=== PATIENT | female | born 1965 | race Caucasian/White ===

== ENCOUNTER → 2017-05-27 | Outpatient (CLI) | payer BC, SELFPAY | PROVIDERS: Visit Provider Internal Medicine Adolescent Medicine | DX: I10 Essential (primary) hypertension (principal) | CPT/HCPCS: 36415; 80053; 80061; 82306; 82607; 82728; 84443; 85025 ==

== ENCOUNTER → 2017-10-08 07:12 | Outpatient (CLI) | payer BC, SELFPAY ==
[2017-10-08 07:33] LABS: Basophils # 0.1 K/mm3 (0-0.2); Basophils % 0.9 % (0.1-2.0); Eosinophils # 0.1 K/mm3 (0.0-0.4); Eosinophils % 1.7 % (0.1-12.0); Hematocrit 46.1 % (37.0-47.0); Lymphocytes # 2.5 K/mm3 (0.7-4.5); Lymphocytes % 34.1 K/mm3 (10-50); Mean Corpuscular HGB Conc 32.5 g/dL (31.8-35.4); Mean Corpuscular Hemoglobin 29.4 pg (27.0-31.2); Mean Corpuscular Volume 90.4 fl (81-99); Mean Platelet Volume 8.5 fl (7.4-10.4); Monocytes # 0.4 K/mm3 (0.1-1.0); Neutrophils # 4.2 K/mm3 (1.8-7.8); Neutrophils % 57.3 % (37.0-80.0); Platelet Count 229 K/mm3 (142-424); Red Cell Distribution Width 13.2 % (11.5-17.5); White Blood Count 7.4 K/mm3 (4.8-10.8)
[2017-10-08 09:20] LABS: Alanine Aminotransferase 20 U/L (12-78); Albumin Level 3.9 gm/dL (3.4-5.0); Albumin/Globulin Ratio 1.1 (1.1-1.8); Alkaline Phosphatase 86 U/L (46-116); Anion Gap 12.2 mEq/L (5-15); Aspartate Amino Transferase 16 U/L (15-37); Bilirubin,Total 0.2 mg/dL (0.2-1.0); Blood Urea Nitrogen 25 mg/dL (7-18); Calcium 9.3 mg/dL (8.5-10.1); Carbon Dioxide 29 mmol/L (21.0-32.0); Chloride 105 mmol/L (98-107); Chol/HDL Ratio 4.2 (1-3.5); Cholesterol 281 mg/dL (140-200); Creatinine,Serum 0.88 mg/dL (0.55-1.02); Estimated Glomerular Filt Rate 67 ml/min (>60); Free T4 (Free Thyroxine) 0.93 ng/dl (0.76-1.46); GFR (African American) 81 ML/MIN (>60); Globulin 3.6 gm/dl (1.3-3.2); Glucose 89 mg/dL (74-106); HDL Cholesterol 67 mg/dL (29-89); LDL Cholesterol 185 mg/dL (0-130); Potassium 4.2 mmoL/L (3.5-5.1); Sodium 142 mmol/L (136-145); Thyroid Stimulating Hormone 2.54 uIU/ml (0.358-3.740); Total Protein,Serum 7.5 gm/dL (6.4-8.2); Triglycerides 147 mg/dL (30-200); VLDL Cholesterol 29 mg/dL (0-40)
[2017-10-08 09:21] LABS: Hemoglobin A1C 5.9 % (0.0-7.0)
[2017-10-10 05:46] LABS: Vitamin D 25 Hydroxy 25.3 ng/mL (30.0-100.0)
== END ==
PROVIDERS: PCP Emergency Medicine; Visit Provider Nurse Practitioner Family
DX: R53.83 Other fatigue (principal); I16.0 Hypertensive urgency; E78.5 Hyperlipidemia, unspecified
CPT/HCPCS: 36415; 80053; 80061; 82652; 83036; 84439; 84443; 85025

== ENCOUNTER → 2018-03-23 10:03 | Outpatient (CLI) | payer BC, SELFPAY ==
--- NOTE | 2018-03-23 10:06 | MM_ITS ---
MM Dig screening mamm BI w/CAD ORDERING PHYSICIAN : Arden Collier MD PATIENT AGE: 53 years GENDER: Female COMPARISON: Digital mammograms from January 2012, April 2014, film screen mammogram April 2008 INDICATION: ITS.REASON: Routine Screening Mammogram no hormones no new complaints noncontributory family history. TECHNIQUE: Standard CC and MLO images were obtained. R2 CAD reviewed. FINDINGS: Low-density breast bilaterally with generalized fatty replacement. Minimal fibroglandular elements bilaterally remain with mild asymmetry again observed similar to previous studies. No suspicious or dominant mass. No suspicious calcifications. Bilateral follow-up in one year adequate. Re-signed report IMPRESSION: ...... Negative, Stable bilateral mammogram. Follow-up in one year. Low-density breast with minimal asymmetry BI-RADS Category: 1 Negative RECOMMENDED FOLLOW-UP: 1YR 1 YEAR FOLLOW-UP (A letter has been sent to the patient regarding results of the study.) .
== END ==
PROVIDERS: PCP Emergency Medicine; Visit Provider Nurse Practitioner Obstetrics & Gynecology
DX: Z12.31 Encounter for screening mammogram for malignant neoplasm of breast (principal)
CPT/HCPCS: 77067

== ENCOUNTER → 2020-10-08 18:02 | Outpatient (CLI) | payer BC, SELFPAY ==
[2020-10-08 18:23] LABS: Basophils # 0.1 K/mm3 (0-0.2); Eosinophils # 0.2 K/mm3 (0.0-0.4); Eosinophils % 1.8 % (0.1-12.0); Hematocrit 41.4 % (37.0-47.0); Hemoglobin 13.5 g/dL (12.2-16.2); Lymphocytes # 3.1 K/mm3 (0.7-4.5); Lymphocytes % 34.9 % (10-50); Mean Corpuscular HGB Conc 32.6 g/dL (31.8-35.4); Mean Corpuscular Hemoglobin 28.3 pg (27.0-31.2); Mean Corpuscular Volume 86.9 fl (81-99); Mean Platelet Volume 8.8 fl (7.4-10.4); Monocytes # 0.6 K/mm3 (0.1-1.0); Monocytes % 6.6 % (1.7-9.3); Neutrophils # 4.9 K/mm3 (1.8-7.8); Neutrophils % 55.8 % (37.0-80.0); Platelet Count 237 K/mm3 (142-424); Red Blood Count 4.76 M/mm3 (4.20-5.40); Red Cell Distribution Width 14.2 % (11.5-17.5); White Blood Count 8.8 K/mm3 (4.8-10.8)
[2020-10-08 18:37] LABS: Alanine Aminotransferase 22 U/L (12-78); Albumin Level 4.4 g/dl (3.5-5.0); Albumin/Globulin Ratio 1.6 (1.1-1.8); Alkaline Phosphatase 88 U/L (38-126); Anion Gap 11.4 mEq/L (5-15); Aspartate Amino Transferase 29 U/L (14-36); Bilirubin,Total 0.3 mg/dl (0.2-1.3); Blood Urea Nitrogen 19 mg/dl (7-17); Calcium 9.5 mg/dl (8.4-10.2); Carbon Dioxide 27 mmol/L (22.0-30.0); Chloride 106 mmol/L (98-107); Chol/HDL Ratio 3.7 (1-3.5); Cholesterol 285 mg/dl (140-200); Estimated Glomerular Filt Rate 57 ml/min (>60); GFR (African American) 69 ML/MIN (>60); Globulin 2.8 g/dL (1.3-3.2); Glucose 92 mg/dl (74-100); HDL Cholesterol 78 mg/dl (40-60); Potassium 4.4 mmoL/L (3.5-5.1); Sodium 140 mmol/L (136-145); Total Protein,Serum 7.2 g/dl (6.3-8.2); Triglycerides 192 mg/dl (30-150); VLDL Cholesterol 38 mg/dL (0-40)
[2020-10-08 18:47] LABS: C-Reactive Protein 5.1 mg/L (0-4); Direct LDL Cholesterol 149.88 mg/dL (100-129)
[2020-10-08 18:53] LABS: Hemoglobin A1C 5.7 % (4.0-6.0)
[2020-10-08 19:08] LABS: Thyroid Stimulating Hormone 2.24 uIU/mL (0.465-4.68)
[2020-10-08 19:38] LABS: 25-OH Vitamin D, Total 18.9 ng/mL (30-100); Free T4 (Free Thyroxine) 1.04 ng/dl (0.78-2.19)
[2020-10-08 19:56] LABS: Erythrocyte Sedimentation Rate 17 mm/hr (0-30)
== END ==
PROVIDERS: Visit Provider Emergency Medicine
DX: I10 Essential (primary) hypertension (principal); E78.5 Hyperlipidemia, unspecified; E66.9 Obesity, unspecified; E55.9 Vitamin D deficiency, unspecified; Z68.42 Body mass index [BMI] 45.0-49.9, adult
CPT/HCPCS: 80053; 80061; 82306; 83036; 84439; 84443; 85025; 85651; 86140; 86431

== ENCOUNTER → 2020-10-09 09:47 | Outpatient (CLI) | payer BC, SELFPAY ==
--- NOTE | 2020-10-09 09:50 | XR_ITS ---
PROCEDURE: XR CHEST 2V CLINICAL HISTORY: shortness of breath COMPARISON: No exams were available for comparison FINDINGS: The cardiomediastinal silhouette and pulmonary vascularity are within normal limits. The lungs are clear without infiltrates, suspicious nodules, or pleural effusions. No acute bony abnormalities. IMPRESSION: No acute findings. Dictated by: Velasquez Rios MD 10/09/2020 10:18 Velasquez Rios MD in [place] 10/09/2020 10:18
== END ==
PROVIDERS: PCP Emergency Medicine; Visit Provider Emergency Medicine
DX: R06.02 Shortness of breath (principal)
CPT/HCPCS: 71046

== ENCOUNTER 2020-10-21 10:34 | Emergency (ER) | payer BC, SELFPAY ==
[2020-10-21 10:35] VITALS: BP 169/95; PULSE 64; RESP 16; TEMP 36.8; O2SAT 100; BMI 45.5
--- NOTE | 2020-10-21 10:54 | CT_ITS ---
PROCEDURE INFORMATION: Exam: CT Abdomen And Pelvis With Contrast; Kidneys Exam date and time: 10/21/2020 10:54 AM Age: 55 years old Clinical indication: Abdominal pain; Flank; Left lower quadrant (llq); Prior surgery; Surgery date: 6+ months; Surgery type: Hysterectomy, , ; Additional info: Llq pain TECHNIQUE: Imaging protocol: Computed tomography of the abdomen and pelvis with intravenous contrast. Exam focused on the kidneys. Radiation optimization: All CT scans at this facility use at least one of these dose optimization techniques: automated exposure control; mA and/or kV adjustment per patient size (includes targeted exams where dose is matched to clinical indication); or iterative reconstruction. Contrast material: ISOVUE; Contrast volume: 75 ml; Contrast route: IV; COMPARISON: No relevant prior studies available. FINDINGS: Liver: Normal. No mass. Gallbladder and bile ducts: Normal. No calcified stones. No ductal dilation. Pancreas: Normal. No ductal dilation. Spleen: Normal. No splenomegaly. Adrenals: Normal. No mass. 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 No renal calculus or hydronephrosis. No perinephric edema. Stomach and bowel: Normal. No obstruction. No mucosal thickening. Colonic diverticulosis, no acute diverticulitis. Intraperitoneal space: Unremarkable. No free air. No significant fluid collection. Lymph nodes: Unremarkable. No enlarged lymph nodes. Vasculature: Unremarkable. No abdominal aortic aneurysm. Bladder: Unremarkable. Reproductive: Hysterectomy. Bones/joints: Unremarkable. Soft tissues: Left abdominal wall intramuscular lipoma. IMPRESSION: No acute findings.
--- NOTE | 2020-10-21 10:55 | [facility].EDABDPAI ---
ED Disposition Clinical Impression: Diverticulosis, Diverticulitis Disposition: Home, Self-Care Condition on Discharge: Good Instructions: DI for Acute Abdominal Pain, DI for Diverticulosis, DI for Diverticulitis Additional Instructions: You have been evaluated for abdominal pain, diagnosed with diverticulosis. Please take ciprofloxacin and Flagyl. Take Clovis for extreme pain. Take ibuprofen for mild pain. Follow-up with Dr. Boogie on Tuesday. You may come at 10 AM or 1 PM, please call the office to schedule. Follow a bland diet. Eat fiber. Have regular bowel movements. Return to the emergency department for any new or worsening symptoms, vomiting, fevers, worsening pain. Prescriptions: Hydrocod/Acet 5/325 mg [Clovis 5/325mg tablet] 1 tab PO Q6HP PRN #8 tab PRN Reason: Severe Pain Transmission Status: Received by [id number] Ciprofloxacin HCl [Ciprofloxacin 250mg Tab] 500 mg PO BID 10 Days #40 tab Transmission Status: Pending to [id number] metroNIDAZOLE [Metronidazole] 500 mg PO BID 10 Days #20 tab Transmission Status: Pending to [id number] Referrals: Rolando Boogie MD [Primary Care Provider] - Time of Disposition: 14:04 - Critical Care Critical Care Time: No Attestation: On 10/21/20, the high probability of a clinically significant, sudden or life threatening deterioration of the following system(s) required my full and direct attention, intervention and personal management. The time I documented below is in addition to time spent performing reported procedures but includes the following listed in this critical care notation. Medical Decision Making - Medical Records Medical records reviewed: Yes: I reviewed the patient's medical records. - Lonnie Inquiry Pt receiving controlled substance: No Vital Signs: 10/21/20 10:35 10/21/20 11:49 10/21/20 13:05 Temperature 98.2 F Temperature Source Oral Pulse Rate 54 L 59 L Pulse Rate [Right] 64 Respiratory Rate 16 Blood Pressure 113/72 Blood Pressure [Right Arm] 169/95 H Blood Pressure Mean Blood Pressure Mean [Right Arm] 119 Blood Pressure Source [Right Arm] Automatic Cuff Blood Pressure Position [Right Arm] Sitting 02 Sat by Pulse Oximetry 100 100 98 Oxygen Delivery Method Room Air 10/21/20 13:23 Temperature Temperature Source Pulse Rate 62 Pulse Rate [Right] Respiratory Rate 18 Blood Pressure 171/84 H Blood Pressure [Right Arm] Blood Pressure Mean 146 Blood Pressure Mean [Right Arm] Blood Pressure Source [Right Arm] Blood Pressure Position [Right Arm] 02 Sat by Pulse Oximetry 99 Oxygen Delivery Method - Lab Data Lab Results 10/21/20 10:46: Urine Color Yellow, Urine Appearance Clear, Urine pH 6.0, Ur Specific [place] <= 1.005, Urine Protein Negative, Urine Glucose (UA) Negative, Urine Ketones Negative, Urine Blood Negative, Urine Nitrate Negative, Urine Bilirubin Negative, Urine Urobilinogen 0.2, Ur Leukocyte Esterase Negative, Urine RBC None, Urine WBC 3-5, Ur Squamous Epith Cells Occasional, Urine Bacteria None 10/21/20 10:57: WBC 6.9, RBC 4.94, Hgb 14.0, Hct 43.6, MCV 88.2, MCH 28.4, MCHC 32.2, RDW 13.8, Plt Count 226, MPV 8.8, Neut % (Auto) 57.5, Lymph % (Auto) 33.8, [place] % (Auto) 6.2, Eos % (Auto) 1.1, Baso % (Auto) 1.3, Neut # (Auto) 4.0, Lymph # (Auto) 2.4, [place] # (Auto) 0.4, Eos # (Auto) 0.1, Baso # (Auto) 0.1 10/21/20 10:57: Sodium 140, Potassium 4.5, Chloride 107, Carbon Dioxide 27, Anion Gap 10.5, BUN 17, Creatinine 1.00, Estimated Creat Clear 51, Estimated GFR 57 L, Est GFR ( Amer) 69, Glucose 92, Calcium 9.6, Total Bilirubin 0.5, AST 30, ALT 20, Alkaline Phosphatase 83, C-Reactive Protein 4.9 H, Total Protein 7.8, Albumin 4.6, Globulin 3.2, Albumin/Globulin Ratio 1.4, Lipase 184 10/21/20 10:57: ESR 61 H 10/21/20 10:57: Procalcitonin 0.125 10/21/20 11:05: Lactate 1.0 Result diagrams: 10/21/20 10:57 10/21/20 10:57 Orders (Tests/Meds): ED MEDICATIONS
[2020-10-21 10:58] LABS: Microscopic, Urine URINE MICROSCOPIC (MICROSCOPIC)
[2020-10-21 11:00] LABS: Appearance,Urine CLEAR (Clear); Bilirubin,Urine Negative (Negative); Blood, Urine Negative (Negative); Color,Urine YELLOW (Yellow); Glucose,Urine (UA) Negative (Negative); Ketones,Urine Negative (Negative); Leukocyte Esterase,Urine Negative (Negative); Nitrate,Urine Negative (Negative); Protein,Urine Negative (Negative); Specific Gravity, Urine <= 1.005 (1.005-1.030); Urobilinogen,Urine 0.2 EU/dl (0.2)
[2020-10-21 11:13] LABS: Squamous Epithelial Cell,Urine Occasional #/hpf (0-5)
[2020-10-21 11:21] LABS: Basophils # 0.1 K/mm3 (0-0.2); Basophils % 1.3 % (0.1-2.0); Eosinophils # 0.1 K/mm3 (0.0-0.4); Eosinophils % 1.1 % (0.1-12.0); Hematocrit 43.6 % (37.0-47.0); Lymphocytes # 2.4 K/mm3 (0.7-4.5); Lymphocytes % 33.8 % (10-50); Mean Corpuscular HGB Conc 32.2 g/dL (31.8-35.4); Mean Corpuscular Hemoglobin 28.4 pg (27.0-31.2); Mean Corpuscular Volume 88.2 fl (81-99); Mean Platelet Volume 8.8 fl (7.4-10.4); Monocytes # 0.4 K/mm3 (0.1-1.0); Monocytes % 6.2 % (1.7-9.3); Neutrophils % 57.5 % (37.0-80.0); Platelet Count 226 K/mm3 (142-424); Red Blood Count 4.94 M/mm3 (4.20-5.40); Red Cell Distribution Width 13.8 % (11.5-17.5); White Blood Count 6.9 K/mm3 (4.8-10.8)
[2020-10-21 11:23] LABS: Alanine Aminotransferase 20 U/L (12-78); Albumin Level 4.6 g/dl (3.5-5.0); Albumin/Globulin Ratio 1.4 (1.1-1.8); Alkaline Phosphatase 83 U/L (38-126); Anion Gap 10.5 mEq/L (5-15); Aspartate Amino Transferase 30 U/L (14-36); Bilirubin,Total 0.5 mg/dl (0.2-1.3); Blood Urea Nitrogen 17 mg/dl (7-17); Calcium 9.6 mg/dl (8.4-10.2); Carbon Dioxide 27 mmol/L (22.0-30.0); Chloride 107 mmol/L (98-107); Creatinine Clearance Estimated 51 mL/min (50-200); Estimated Glomerular Filt Rate 57 ml/min (>60); GFR (African American) 69 ML/MIN (>60); Globulin 3.2 g/dL (1.3-3.2); Glucose 92 mg/dl (74-100); Lipase 184 U/L (23-300); Potassium 4.5 mmoL/L (3.5-5.1); Sodium 140 mmol/L (136-145); Total Protein,Serum 7.8 g/dl (6.3-8.2)
[2020-10-21 11:29] LABS: C-Reactive Protein 4.9 mg/L (0-4)
[2020-10-21 11:42] LABS: Procalcitonin 0.125 ng/mL (0.0-2.0)
[2020-10-21 11:49] VITALS: BP 113/72; PULSE 54; O2SAT 100
[2020-10-21 12:06] LABS: Erythrocyte Sedimentation Rate 61 mm/hr (0-30)
--- NOTE | 2020-10-21 12:18 | PC.NURSE ---
Pt going to CT
--- NOTE | 2020-10-21 13:04 | PC.NURSE ---
Called Dr. Boogie office, they advised that he had stepped out for lunch and should return in just a few moments. Would have him call as soon as he returned
[2020-10-21 13:05] VITALS: PULSE 59; O2SAT 98
[2020-10-21 13:23] VITALS: BP 171/84; PULSE 62; RESP 18; O2SAT 99
--- NOTE | 2020-10-21 13:30 | PC.NURSE ---
MD at bedside updating pt on plan of care and results thus far.
--- NOTE | 2020-10-21 13:50 | PC.NURSE ---
attempted to call Dr. Amato office, advised he was in a room and would call back
--- NOTE | 2020-10-21 13:57 | PC.NURSE ---
speaking with Dr. Boogie
[2020-10-21 14:21] VITALS: BP 192/80; PULSE 52; RESP 16; TEMP 36.3; O2SAT 98
== END 2020-10-21 14:23 | disposition home or self-care (01) ==
PROVIDERS: Emergency Provider Emergency Medicine; PCP Emergency Medicine
DX: K57.92 Diverticulitis of intestine, part unspecified, without perforation or abscess without bleeding (principal); K21.9 Gastro-esophageal reflux disease without esophagitis; I10 Essential (primary) hypertension; E78.5 Hyperlipidemia, unspecified
CPT/HCPCS: 74177; 80053; 81001; 83605; 83690; 84145; 85025; 85651; 86140; 96374; 99282; Q9967